=== PATIENT | male | born 1970 | race Caucasian/White ===

== ENCOUNTER 2020-08-03 16:42 | Emergency (ER) | payer SELFPAY ==
[~2020-08-03] VITALS: Ht 188 cm; Wt 120.2 kg
== END 2020-08-03 17:25 | disposition home or self-care (01) ==
LOC: ER 17:13
DX: U07.1 COVID-19 (principal); R05 Cough; R06.02 Shortness of breath
CPT/HCPCS: 99282

== ENCOUNTER 2020-08-05 16:20 | Emergency (ER) | payer SELFPAY ==
[~2020-08-05] VITALS: Ht 188 cm; Wt 120.2 kg
[2020-08-05] MEDS ORDERED: AZITHROMYCIN 500MG/NS 250 ML 250 ML IV SCH (16:30)
[2020-08-05] MEDS ORDERED: DEXAMETHASONE SOD PHOS 10 MG/1 ML VIAL IV ONE (16:30)
[2020-08-05] MEDS ORDERED: ASPIRIN 81 MG CHEW TAB PO ONE (16:30)
[2020-08-05 16:44] LABS: BASOPHILS % 0.1 % (0.0-1.0); HEMATOCRIT 44.8 % (38.2-49.6); HEMOGLOBIN 15.2 g/dL (14.0-18.0); LYMPHOCYTES # (AUTO) 1.5 (1.0-3.2); LYMPHOCYTES % 14.7 % (18.0-39.1); MEAN CORPUSCULAR HEMOGLOBIN 30.7 pg (28-32); MEAN CORPUSCULAR HGB CONC 33.9 g/dL (31-35); MEAN CORPUSCULAR VOLUME 90.5 fL (81-99); MONOCYTES # (AUTO) 0.6 (0.2-0.8); MONOCYTES % 6.4 % (4.4-11.3); NEUTROPHILS # (AUTO) 7.7 (2.1-6.9); NEUTROPHILS % 77.9 % (38.7-80.0); PLATELET COUNT 343 x10e3/uL (140-360); RED BLOOD COUNT 4.95 x10e6/uL (4.3-5.7); RED CELL DISTRIBUTION WIDTH 12.9 % (11.7-14.4)
[2020-08-05 17:06] LABS: ALANINE AMINOTRANSFERASE 69 IU/L (0-55); ALBUMIN 2.6 g/dL (3.5-5.0); ALBUMIN/GLOBULIN RATIO 0.6 (0.8-2.0); ALKALINE PHOSPHATASE 85 IU/L (40-150); ANION GAP 15.8 mmol/L (8-16); BLOOD UREA NITROGEN 16 mg/dL (7-26); BUN/CREATININE RATIO 18 (6-25); CALCIUM 8.8 mg/dL (8.4-10.2); CARBON DIOXIDE 28 mmol/L (22-29); CHLORIDE 102 mmol/L (98-107); CREATINE KINASE 16 IU/L (30-200); CREATININE, SERUM 0.89 mg/dL (0.72-1.25); EST GLOMERULAR FILTRATION RATE > 60 ML/MIN (60-); GLUCOSE 105 mg/dL (74-118); POTASSIUM 3.8 mmol/L (3.5-5.1); SODIUM 142 mmol/L (136-145)
[2020-08-05 17:22] LABS: ABG HCO3 28 mmol/L (22-26); ABG PCO2 36 mmHg (35-45); ABG PO2 59 mmHg (80-105); ABG TCO2 29
[2020-08-05 19:29] VITALS: BP 129/85
[2020-08-05] MEDS ORDERED: ACETAMINOPHEN 325 MG TAB PO ONE (19:45)
== END 2020-08-05 20:19 | disposition other institution (70) ==
LOC: ER 16:27
DX: R09.02 Hypoxemia (principal); U07.1 COVID-19
CPT/HCPCS: 36415; 36600; 71045; 80053; 82550; 82553; 82805; 83880; 84484; 85025; 93005; 99284; J0456; J1100